=== PATIENT | male | born 1955 | race Caucasian/White ===

== ENCOUNTER 2022-02-24 07:07 | Outpatient (CLI) | payer OTHER, SELFPAY ==
--- NOTE | 2022-02-24 07:15 | MR_ITS ---
[address] [address] Phone:?[phone] Fax:?[phone] Referring Physician Information: Alireza Desir M.D. [address] [place] [address] Phone:?[phone] Fax:?[phone] Patient:Roro Jones D.O.B:?1955 Sex:?Male Phone:?[phone] [facility] MRN:?[id number] Exam Date:?02/24/2022 ? EXAM: MRI of the LEFT SHOULDER, without contrast CLINICAL HISTORY: Left shoulder pain attributed to injury. Evaluate for rotator cuff tear. COMPARISONS: None available. TECHNICAL: MRI sequences of the left shoulder: Axials: PD, T2 Coronals: PD, STIR, T2 Sagittals: PD, T2 SEDATION: None CONTRAST: None FINDINGS: Bones: No fracture or suspicious bone marrow signal abnormality. Coracoacromial arch: Acromion: No os acromiale. Type II acromion. Acromiohumeral space: The bony distance is unremarkable. Coracohumeral space: The bony distance is unremarkable. Acromioclavicular joint: Moderate degenerative changes with moderate inferior osteophytosis/hypertrophy. Coracoclavicular ligament: The coracoclavicular ligament is intact. Rotator cuff muscles/tendons: Supraspinatus: Mild interstitial delamination and mild tendinopathy of the supraspinatus tendon. No tendon tear or muscular atrophy. Infraspinatus: The infraspinatus tendon and muscle are intact. Teres minor: The teres minor tendon and muscle are intact. Subscapularis: Approximately 1.0 x 1.0 cm ill-defined low-grade interstitial type partial-thickness tear of the superior portion of the subscapularis tendon insertion best seen on axial series 3.1 image 18. No atrophy of the subscapularis muscle. Labrum: No evidence of labral tear although evaluation is suboptimal because of nonarthrogram technique. Proximal biceps tendon, long head and short heads: Ill-defined partial tear of the proximal long head of the biceps tendon, which is medially subluxed at the superior aspect of the bicipital groove. The short is intact. Glenohumeral joint: Trace glenohumeral joint effusion. No full-thickness chondral defect or subchondral bone marrow edema/cystic change is seen. No convincing evidence of capsular edema or thickening although evaluation is suboptimal because of lack of joint distention. Bursae: Subacromial/subdeltoid: Minimal bursitis. Subcoracoid: No convincing subcoracoid bursal thickening/bursitis. IMPRESSION: 1. Ill-defined partial tear of the proximal long head of the biceps tendon, which is medially subluxed at the superior aspect of the bicipital groove. 2. Approximately 1.0 x 1.0 cm ill-defined low-grade partial-thickness interstitial type tear of the superior portion of the subscapularis tendon insertion. 3. Mild interstitial delamination and mild tendinopathy of the supraspinatus tendon. 4. No atrophy of the rotator cuff musculature. 5. Moderate acromioclavicular joint osteoarthritis with moderate inferior osteophytosis/hypertrophy. 6. Minimal subacromial/subdeltoid bursitis. 7. Trace glenohumeral joint effusion. RCB Electronically signed on 02/24/2022 12:41:00 PM by Richard Holloway M.D.
--- NOTE | 2022-02-24 08:15 | MR_ITS ---
[address] [address] Phone:?[phone] Fax:?[phone] Referring Physician Information: Alireza Desir M.D. [address] [place] [address] Phone:?[phone] Fax:?[phone] Patient:Roro Jones D.O.B:?1955 Sex:?Male Phone:?[phone] [facility] MRN:?[id number] Exam Date:?02/24/2022 ? EXAM: MRI of the RIGHT SHOULDER, without contrast CLINICAL HISTORY: Right shoulder pain attributed to injury. Evaluate for rotator cuff tear. COMPARISONS: None available. TECHNICAL: MRI sequences of the right shoulder: Axials: PD, T2 Coronals: PD, STIR, T2 Sagittals: PD, T2 SEDATION: None CONTRAST: None FINDINGS: Bones: No fracture or suspicious bone marrow signal abnormality. Coracoacromial arch: Acromion: No os acromiale. Type II acromion. Acromiohumeral space: The bony distance is unremarkable. Coracohumeral space: The bony distance is unremarkable. Acromioclavicular joint: Marked acromioclavicular joint osteoarthritic changes with marked inferior osteophytosis/hypertrophy abutting the adjacent portion of the supraspinatus muscle. Coracoclavicular ligament: The coracoclavicular ligament is intact. Rotator cuff muscles/tendons: Supraspinatus: Interstitial delamination and mild to moderate tendinopathy of the supraspinatus tendon. No atrophy of the supraspinatus muscle. Infraspinatus: The infraspinatus tendon and muscle are intact. Teres minor: Mild atrophy of the teres minor muscle without teres minor tendon tear. Subscapularis: The subscapularis tendon and muscle are intact. Labrum: Posterosuperior labral fraying. Proximal biceps tendon, long head and short heads: The long and short heads of the proximal biceps tendon are intact. Glenohumeral joint: Physiologic amount of joint fluid. No full-thickness chondral defect or subchondral bone marrow edema/cystic change is seen. No convincing evidence of capsular edema or thickening although evaluation is suboptimal because of lack of joint distention. Bursae: Subacromial/subdeltoid: Mild bursitis. Subcoracoid: No convincing subcoracoid bursal thickening/bursitis. IMPRESSION: 1. Interstitial delamination and mild to moderate tendinopathy of the supraspinatus tendon. No atrophy of the supraspinatus muscle. 2. Mild subacromial/subdeltoid bursitis. 3. Marked acromioclavicular joint osteoarthritis with marked inferior osteophytosis/hypertrophy abutting the adjacent portion of the supraspinatus muscle. 4. Posterosuperior labral fraying. 5. Mild atrophy of the teres minor muscle without teres minor tendon tear. 6. Intact biceps tendon. RCB Electronically signed on 02/24/2022 12:36:00 PM by Richard Holloway M.D.
== END 2022-02-24 07:08 | disposition home or self-care (01) ==
LOC: MRI 07:09
PROVIDERS: Visit Provider Orthopaedic Surgery
DX: M25.511 Pain in right shoulder (principal); M75.51 Bursitis of right shoulder; M19.011 Primary osteoarthritis, right shoulder; M25.512 Pain in left shoulder; S46.912A Strain of unspecified muscle, fascia and tendon at shoulder and upper arm level, left arm, initial encounter; M75.52 Bursitis of left shoulder; M25.412 Effusion, left shoulder; M19.012 Primary osteoarthritis, left shoulder
CPT/HCPCS: 73221

== ENCOUNTER 2022-03-29 08:52 | Outpatient (CLI) | payer MEDICARE, SELFPAY ==
[2022-03-29 14:59] LABS: SARS PCR* Negative SARS-CoV-2 (Negative)
== END 2022-03-29 08:53 | disposition home or self-care (01) ==
LOC: FBOREF 08:52
PROVIDERS: Visit Provider Orthopaedic Surgery
DX: Z20.822 Contact with and (suspected) exposure to COVID-19 (principal)
CPT/HCPCS: 87635

== ENCOUNTER 2022-03-30 06:14 | Day surgery (SDC) | payer MEDICARE, SELFPAY ==
[2022-03-30] VITALS (17 sets, daily range): BP systolic 123–160; BP diastolic 68–107; PULSE 70–88; RESP 16–20; TEMP 36.1–36.6; O2SAT 92–98; BMI 29.0
[2022-03-30] MEDS: OXYCODONE (CR) 10 MG TAB.ER.12H PO (06:50)
[2022-03-30] MEDS: ACETAMINOPHEN 500 MG TABLET 1000 MG PO (06:50)
[2022-03-30] MEDS: CELECOXIB 200 MG CAPSULE PO (06:50)
[2022-03-30] MEDS: LACTATED RINGERS 1000 ML 1,000 ML 100 ML IV ×2 (07:00→08:31)
[2022-03-30] MEDS: MIDAZOLAM HCL 1 MG/ML inj IVP (07:15)
[2022-03-30] MEDS: fentaNYL 100 MCG/2 ML inj IVP (07:15)
--- NOTE | 2022-03-30 07:59 | SUR.PREOP ---
TIME?OUT:?0710 PT/RN/MDA?VERIFICATION?OF?SURGICAL?SITE,?PROCEDURE,?AND?CONSENT OBTAINED?PRIOR?TO?INVASIVE?PROCEDURE. CORRECT SITE IDENTIFIED SITE MARKED. BLOCK COMPLETED BY DR JOB ISAAC MDA
[2022-03-30] MEDS: CEFAZOLIN 2 GM INJ IVP (08:15)
[2022-03-30] MEDS: SODIUM CHLORIDE IRRIG SOLUTION 3,000 ML, EPINEPHrine 1 MG IRRIGATION (08:33)
--- NOTE | 2022-03-30 08:42 | SUR.OPER ---
patient transfered to OR3 from [facility] Day Surgery. Patient assisted to transfer to OR table. Patient was covered with warm blankets x 2.
--- NOTE | 2022-03-30 09:27 | P.ORPRC_ITS ---
Procedure Note Date of procedure: 03/30/22 Procedure: SURGEON: Alireza Desir MD [facility] REPORTER: Annette Oropeza PA-C PREOPERATIVE DIAGNOSIS: Right shoulder rotator cuff tear, AC joint arthrosis POSTOPERATIVE DIAGNOSIS: Right shoulder rotator cuff tear, AC joint arthrosis NAME OF OPERATION: Right shoulder arthroscopic subacromial decompression, distal clavicle excision, arthroscopic rotator cuff repair ANESTHESIA: Supraclavicular block plus general endotracheal ESTIMATED BLOOD LOSS: 5 mL COMPLICATIONS: None SPECIMENS: None DRAINS: None PREOPERATIVE ANTIBIOTICS: Ancef 2 grams INDICATIONS: The patient is a 66-year-old male with a history of right shoulder pain secondary to the above diagnoses. Despite appropriate non operative management, they continue to have symptoms. Operative intervention was recommended. The risks, benefits and expected outcomes were discussed in detail. These included but were not limited to: Infection, bleeding, injury to blood vessel or nerve, venous thromboembolism. All questions were answered to their satisfaction. PROCEDURE: A supraclavicular block was placed by Anesthesia. General anesthesia was administered. The patient was placed in the high beach chair position. The right shoulder was prepped and draped in the usual sterile fashion. The glenohumeral joint was infiltrated with 20 mL of normal saline with epinephrine. The posterior portal was established, the arthroscope was introduced. The anterior portal was established, Diagnostic arthroscopy was performed with findings as follows: The biceps and biceps anchor are intact. The anterior, posterior and superior labrum are normal. Articular surfaces on the humeral head and glenoid are normal. There are no loose bodies. There is a small full-thickness tear of the anterior insertion of the supraspinatus. The arthroscope was placed in the subacromial space, the lateral portal was established. The Arthrex [place] was used to dissect the acromion free. The CA ligament was recessed off the anterior acromion, the AC joint was exposed. The acromioplasty was performed with the bur in the posterior portal. The bur was then placed in the lateral portal and the lateral and anterior aspect of the acromion were resected. The undersurface of the distal clavicle was resected through the lateral portal. Finally, the bur was placed in the anterior portal and the remainder of the distal clavicle was resected for a total of 10 mm. An accessory anterolateral portal was placed. The subacromial/subdeltoid bursa was aggressively debrided. There is a small full-thickness tear of the anterior aspect of the insertion of the supraspinatus. The footprint on the greater tuberosity was debrided with the shaver. Likewise the undersurface of the rotator cuff was debrided with the shaver. A fiber tape was placed in an inverted mattress using the scorpion. We then placed a single, [employer] SwiveLock anchor over the lateral row, repairing the rotator cuff. This provides an anatomic, watertight repair of the rotator cuff. There is no tension on the repair with the shoulder at 0? abduction. Arthroscopic instruments were removed. Portals were closed with a 3-0 Monocryl. A dry dressing, sling and polar Care were applied. Sponge and needle counts were correct x2. The patient tolerated the procedure well. There were no apparent complications. The patient was awakened and extubated in the operating room, sent to postanesthesia recovery in satisfactory condition. PLAN: The patient will be discharged to home. No active range of motion of the shoulder will be allowed for 6 weeks postoperatively. They can work on active range of motion of the elbow, wrist and fingers. They will follow up in the office next week for a wound check and an AP and transscapular Y-view of the shoulder prior to being seen. I will plan to see the patient at 4 weeks posto peratively to discontinue the sling and begin active range of motion.
--- NOTE | 2022-03-30 09:39 | W.ANESCHARGE ---
Anesthesia Charges Start Date/Time Anesthesia Start Date: 03/30/22 Anesthesia Start Time: 07:57 Stop Date/Time Anesthesia Stop Date: 03/30/22 Anesthesia Stop Time: 09:33 Summary Emergency: No
--- NOTE | 2022-03-30 09:58 | W.ANESCHARGE ---
Anesthesia Charges Start Date/Time Anesthesia Start Date: 03/30/22 Anesthesia Start Time: 07:57 Stop Date/Time Anesthesia Stop Date: 03/30/22 Anesthesia Stop Time: 09:33 Summary Emergency: No
--- NOTE | 2022-03-30 09:59 | W.PM.NB ---
Nerve Block Nerve Block Time Seen by Provider: 07:20 Date Seen: 03/30/22 Type of block requested by surgeon for post-operative analgesia: interscalene Side: right Time out performed: Yes Verification of patient name: Yes Verification of date of : Yes Site marking: site marked Name of person performing procedure: Niles Continuous monitoring Was continuous monitoring of O2 sat, B/P, truck rental clerk, recorded every 15 minutes?: Yes Procedure Checklist: sterile prep, needles and gloves Ultrasound guided. Images saved: Yes Medications given in 5ml increments after negative aspiration: Ropivicaine %: 0.5 mL: 20 Needle gauge: 22 Decadron (mg): 10 Precedex (mcg): 25 Patient tolerated procedure well: Yes Block Charges Block Charge (with Pro Fee): Brachial Plexus Use of Ultrasound Machine for Block: Yes- US Guidance/pain block
== END 2022-03-30 11:42 | disposition home or self-care (01) ==
PROVIDERS: PCP Internal Medicine; Visit Provider Orthopaedic Surgery
PROC: (CPT 23412; principal; 2022-03-30 07:45)
DX: M75.121 Complete rotator cuff tear or rupture of right shoulder, not specified as traumatic (principal); M19.011 Primary osteoarthritis, right shoulder
CPT/HCPCS: 29827; 29826; 29824; 01630; 64415; 76942; A9270; C1713; J0171; J0330; J0690; J1100; J2250; J2370; J2405; J2704; J2795; J3010; J7120

== ENCOUNTER 2022-08-17 05:54 | Day surgery (SDC) | payer MEDICARE, SELFPAY ==
[2022-08-17] VITALS (13 sets, daily range): BP systolic 128–149; BP diastolic 69–89; PULSE 70–96; RESP 12–16; TEMP 36.1–36.6; O2SAT 91–99; BMI 30.8
[2022-08-17] MEDS: CELECOXIB 200 MG CAPSULE PO (06:25)
[2022-08-17] MEDS: ACETAMINOPHEN 500 MG TABLET 1000 MG PO (06:25)
[2022-08-17] MEDS: OXYCODONE (CR) 10 MG TAB.ER.12H PO (06:25)
[2022-08-17] MEDS: LACTATED RINGERS 1000 ML 1,000 ML 100 ML IV ×2 (06:30→08:50)
[2022-08-17] MEDS: SODIUM CHLORIDE 0.9 % (FLUSH) 10 ML SYRINGE IVF (06:30)
--- NOTE | 2022-08-17 06:45 | SUR.PREOP ---
Patient provided home covid negative results to RN.
[2022-08-17] MEDS: fentaNYL 100 MCG/2 ML inj IVP (07:14)
[2022-08-17] MEDS: MIDAZOLAM HCL 1 MG/ML inj IVP (07:14)
--- NOTE | 2022-08-17 07:27 | SUR.PREOP ---
TIME?OUT:?0713 PT/Cameron GRIMM RN/Afua ISAAC MDA?VERIFICATION?OF?SURGICAL?SITE,?PROCEDURE,?AND?CONSENT OBTAINED?PRIOR?TO?INVASIVE?PROCEDURE.
[2022-08-17] MEDS: CEFAZOLIN 2 GM INJ IVP (07:37)
--- NOTE | 2022-08-17 08:29 | W.PM.NB ---
Nerve Block Nerve Block Time Seen by Provider: 07:17 Date Seen: 08/17/22 Type of block requested by surgeon for post-operative analgesia: supraclavicular Side: left Time out performed: Yes Verification of patient name: Yes Verification of date of : Yes Site marking: site marked Name of person performing procedure: Niles Continuous monitoring Was continuous monitoring of O2 sat, B/P, diagnostic cardiac sonographer, recorded every 15 minutes?: Yes Procedure Checklist: sterile prep, needles and gloves Ultrasound guided. Images saved: Yes Medications given in 5ml increments after negative aspiration: Ropivicaine %: 0.5 mL: 20 Needle gauge: 22 Decadron (mg): 10 Precedex (mcg): 25 Patient tolerated procedure well: Yes Additional comments: Patient experienced pain with any tactile sensation to the neck area and this sensation evoked movement of the head and neck requiring removal of needle and pausing of procedure. This was with needle, plastic cap, and ultrasound probe pressure. Discussed with him that if it was real pain we should not continue as we would be unable to decipher if pain was related to needle location. He was able to continue and could tell the difference between needle movement and pressure and skin sensation Block Charges Block Charge (with Pro Fee): Brachial Plexus Use of Ultrasound Machine for Block: Yes- US Guidance/pain block
--- NOTE | 2022-08-17 08:32 | W.ANESCHARGE ---
Anesthesia Charges Start Date/Time Anesthesia Start Date: 08/17/22 Anesthesia Start Time: 07:27 Stop Date/Time Anesthesia Stop Date: 08/17/22 Anesthesia Stop Time: 09:30 Summary Emergency: No
--- NOTE | 2022-08-17 08:58 | PM.ORPRC ---
Procedure Note Date of procedure: 08/17/22 Procedure: PREOPERATIVE DIAGNOSIS: Left shoulder subscap tear, biceps tendinopathy and instability, AC joint arthrosis POSTOPERATIVE DIAGNOSIS: Left shoulder subscap tear, biceps tendinopathy and instability, AC joint arthrosis NAME OF OPERATION: Left shoulder arthroscopic subacromial decompression, distal clavicle excision, mini open subscap repair, biceps tenodesis SURGEON: Alireza Desir MD [employer]ER: JORGE L Lopez ANESTHESIA: Supraclavicular block plus general endotracheal ESTIMATED BLOOD LOSS: 5 mL COMPLICATIONS: None SPECIMENS: None DRAINS: None PREOPERATIVE ANTIBIOTICS: Ancef 2 grams INDICATIONS: The patient is a 66-year-old with a history of left shoulder pain secondary to the above diagnoses. Despite appropriate non operative management, they continue to have symptoms. Operative intervention was recommended. The risks, benefits and expected outcomes were discussed in detail. These included but were not limited to: Infection, bleeding, injury to blood vessel or nerve, venous thromboembolism. All questions were answered to their satisfaction. PROCEDURE: A supraclavicular block was placed by Anesthesia. General anesthesia was administered. The patient was placed in the high beach chair position. The left shoulder was prepped and draped in the usual sterile fashion. The glenohumeral joint was infiltrated with 20 mL of normal saline with epinephrine. The posterior portal was established, the arthroscope was introduced. The anterior portal was established, Diagnostic arthroscopy was performed with findings as follows: The biceps has a significant amount of intra-articular tendinopathy. There is minimal, age-appropriate degenerative fraying of the labrum. Articular surfaces on the humeral head and glenoid are normal. There are no loose bodies. The insertion of the supra and infraspinatus are intact. The biceps was tenotomized with the arthroscopic scissors. The labrum was debrided with the shaver. The arthroscope was placed in the subacromial space, the lateral portal was established. The Arthrex [place] was used to dissect the acromion free. The CA ligament was recessed off the anterior acromion, the AC joint was exposed. The acromioplasty was performed with the bur in the posterior portal. The bur was then placed in the lateral portal and the lateral and anterior aspect of the acromion were resected. The undersurface of the distal clavicle was resected through the lateral portal. Finally, the bur was placed in the anterior portal and the remainder of the distal clavicle was resected for a total of 10 mm. An accessory anterolateral portal was placed. The subacromial/subdeltoid bursa was aggressively debrided. The insertion of the supra and infraspinatus are intact. Arthroscopic instruments were removed. The accessory anterolateral portal was extended proximally and distally, subcutaneous dissection was taken with electrocautery to the deltoid. The deltoid was divided in line with its fibers. The static retractor was placed. The subacromial/subdeltoid bursa was debrided with the El scissors. The bicipital groove and rotator interval were opened with the 15 blade. Biceps was delivered into the wound. The upper portion of the subscap was torn off of the lesser tuberosity. The lesser tuberosity was debrided with the [place]pert rongeur, curette and bur to bleeding bone. A fiber link was placed in the biceps. A fiber tape was placed in the upper border of the subscap in an inverted mattress fashion. We placed these sutures in a SwiveLock anchor, high in the bicipital groove to complete the subscap repair and biceps tenodesis. The rotator interval was closed with the suture on the eyelet and a separate # 2 FiberWire suture. This provides an anatomic, watertight repair of the rotator cuff. The wound was irrigated with normal saline off the pump. The deltoid was repaired with an 0 Vicryl in an interrupted [id number] fashion. Subcutaneous tissues were closed with a 3-0 Vicryl. Skin was closed with a 3-0 Monocryl in a subcuticular fashion. A dry dressing, polar care and sling were applied. Sponge and needle counts were correct x2. The patient tolerated the procedure well. There were no apparent complications. They were carefully transferred to the hospital bed and taken to the postanesthesia care unit in satisfactory condition. PLAN: The patient will be discharged to home. He is okay for active forward flexion and abduction. No external rotation greater than 0? will be allowed for 6 weeks postoperatively. They can work on active range of motion of the elbow, wrist and fingers. They will follow up in the office next week for a wound check and an AP and transscapular Y-view of the shoulder prior to being seen.
--- NOTE | 2022-08-17 09:29 | W.ANESCHARGE ---
Anesthesia Charges Start Date/Time Anesthesia Start Date: 08/17/22 Anesthesia Start Time: 07:27 Stop Date/Time Anesthesia Stop Date: 08/17/22 Anesthesia Stop Time: 09:30 Summary Emergency: No
== END 2022-08-17 10:51 | disposition home or self-care (01) ==
PROVIDERS: PCP Internal Medicine; Visit Provider Orthopaedic Surgery
PROC: (CPT 23412; principal; 2022-08-17 07:15)
DX: S46.012A Strain of muscle(s) and tendon(s) of the rotator cuff of left shoulder, initial encounter (principal); M75.22 Bicipital tendinitis, left shoulder; M19.012 Primary osteoarthritis, left shoulder; M25.512 Pain in left shoulder
CPT/HCPCS: 29826; 29824; 29828; 23412; 01630; 64415; 76942; A9270; C1713; J0330; J0690; J1100; J2250; J2370; J2405; J2704; J2795; J3010; J7120; L3670